=== PATIENT | female | born 1960 | race American Indian/Alaskan Native ===

== ENCOUNTER 2018-05-16 22:52 | Emergency (ER) | payer MEDICARE ==
[2018-05-16 23:13] VITALS: BP 120/70
--- NOTE | 2018-05-16 23:20 | Emergency Department Report ---
ED Head Trauma HPI - General Chief complaint: Wound/Laceration Stated complaint: HEAD LACERATION Time Seen by Provider: 05/16/18 23:19 Source: EMS, RN notes reviewed Mode of arrival: Stretcher Limitations: Altered Mental Status - History of Present Illness Initial comments: Patient is a 57-year-old female that presents to the emergency room for evaluati on after a self-inflicted head injury. Patient was noted to be hitting her head on the floor. Patient's sustained a wound to her occipital region of her head. Bleeding is controlled. History per caregiver at bedside. Caregiver states the patient is at baseline. Patient is a note times one. Patient is almost completely nonverbal. Psychiatric chart reviewed that accompany the patient. Patient is in [facility] for worsening psychosis and schizophrenia. Patient has been nonverbal at the facility but is violent at times and has uncontrolled behaviors at times. Patient is nonverbal and unable to assess other complaints and review of systems. Patient is at [facility] for a 1013. Complaint: head injury -: Sudden Mechanism of Injury: other Location: occipital Loss of Consciousness: no Previous Trauma to this Area: No Place: other Radiation: none Consistency: now resolved Provoking factors: emotional stress Other Injuries: laceration - Related Data Allergies/Adverse reactions: Allergies Allergy/AdvReac Type Severity Reaction Status Date / Time No Known Allergies Allergy Unverified 05/16/18 23:13 ED Review of Systems ROS: Stated complaint: HEAD LACERATION Other details as noted in HPI Comment: Unobtainable due to pts medical conditions ED Past Medical Hx - Past Medical History Previous Medical History?: Yes Hx Psychiatric Treatment: Yes (schizophrenia, bipolar) - Surgical History Past Surgical History?: No - Family History Family history: no significant - Social History Smoking Status: Unknown if ever smoked Substance Use Type: None ED Physical Exam - General Limitations: Altered Mental Status General appearance: alert, in no apparent distress - Head Head exam: Present: other (abrasion noted to occipital region.) - Eye Eye exam: Present: normal appearance, PERRL Pupils: Present: normal accommodation - ENT ENT exam: Present: mucous membranes moist - Neck Neck exam: Present: normal inspection - Respiratory Respiratory exam: Present: normal lung sounds bilaterally. Absent: respiratory distress - Cardiovascular Cardiovascular Exam: Present: regular rate, normal rhythm. Absent: systolic murmur, diastolic murmur, rubs, gallop - GI/Abdominal GI/Abdominal exam: Present: soft, normal bowel sounds. Absent: distended, tenderness, guarding, rebound - Rectal Rectal exam: Present: deferred - Extremities Exam Extremities exam: Present: normal inspection - Back Exam Back exam: Present: normal inspection - Neurological Exam Neurological exam: Present: alert, altered, reflexes normal. Absent: motor sensory deficit - Psychiatric Psychiatric exam: Present: flat affect - Skin Skin exam: Present: warm, dry, normal color, abrasion (to occipital region. No laceration noted). Absent: rash ED Course Vital Signs 05/16/18 23:09 Temperature 98.2 F Pulse Rate 89 Respiratory 18 Rate Blood Pressure 120/70 Blood Pressure 120/70 [Left] O2 Sat by Pulse 100 Oximetry - Reevaluation(s) Reevaluation #1: Discussed all results with caregiver. Patient is stable for discharge. Patient was discharged back to her psychiatric facility. 05/17/18 00:55 - Radiology Data Radiology results: report reviewed PROCEDURE: CT HEAD/BRAIN WO CON TECHNIQUE: Spiral CT imaging of the brain was obtained without IV contrast. HISTORY: head injury COMPARISONS: None FINDINGS: Brain: Brain density appears normal. No evidence of intracranial hemorrhage. No parenchymal hemorrhage, mass lesions or mass effect are seen. No abnormal extra-axial fluid collects or masses are seen. Ventricles: Ventricles are normal size and are midline. Bone Windows: No evidence of skull fracture. Paranasal sinuses: Visualized portions are clear. Mastoid air cells: Clear. IMPRESSION: Negative exam. No evidence of intracranial hemorrhage or skull fracture. - Medical Decision Making Patient is a 57-year-old female that presents to the emergency room for evaluation after self-inflicted head injury. Patient sustained a scalp abrasion. Patient's abrasion does not require any further emergency treatment but will require wound care at her psychiatric facility. Patient had a head CT done to rule out intracranial trauma. CT was negative. Patient and caregiver given discharge instructions. Patient will be discharged back to her psychiatric facility. Patient will call our wound care at her psychiatric facility. - Differential Diagnosis abrasion. Head injury. Critical care attestation.: If time is entered above; I have spent that time in minutes in the direct care of this critically ill patient, excluding procedure time. ED Disposition Clinical Impression: Head injury Qualifiers: Encounter type: initial encounter Qualified Code(s): S09.90XA - Unspecified injury of head, initial encounter Scalp abrasion Qualifiers: Encounter type: initial encounter Qualified Code(s): S00.01XA - Abrasion of scalp, initial encounter Disposition: DC/TX-65 PSY HOSP/PSY UNIT Is pt being admited?: No Does the pt Need Aspirin: No Condition: Stable Instructions: Minor Head Injury (ED), Abrasion (ED) Additional Instructions: Patient to follow-up with primary care in 2-3 days. Patient to return to psychiatric facility. Patient to rest. Patient take Tylenol or ibuprofen when necessary for pain. Patient to watch for signs of infection with her scalp abrasion. Patient to have wound care done Time of Disposition: 00:59
[2018-05-16] MEDS ORDERED: ATIVAN ONE (23:43)
[2018-05-16] MEDS ORDERED: ATIVAN IM ONE (23:44)
--- NOTE | 2018-05-17 00:33 | Cat Scan Report ---
PROCEDURE: CT HEAD/BRAIN WO CON TECHNIQUE: Spiral CT imaging of the brain was obtained without IV contrast. HISTORY: head injury COMPARISONS: None FINDINGS: Brain: Brain density appears normal. No evidence of intracranial hemorrhage. No parenchymal hemorr charo, mass lesions or mass effect are seen. No abnormal extra-axial fluid collects or masses are see n. Ventricles: Ventricles are normal size and are midline. Bone Windows: No evidence of skull fracture. Paranasal sinuses: Visualized portions are clear. Mastoid air cells: Clear. IMPRESSION: Negative exam. No evidence of intracranial hemorrhage or skull fracture. This document is electronically signed by Franklin Farr MD., May 17 2018 12:31:01 AM ET
== END 2018-05-17 02:30 ==
LOC: ED 22:52
DX: S00.01XA Abrasion of scalp, initial encounter (principal); F31.9 Bipolar disorder, unspecified; F20.9 Schizophrenia, unspecified; W22.01XA Walked into wall, initial encounter; Y93.89 Activity, other specified; Y92.89 Other specified places as the place of occurrence of the external cause; Y99.8 Other external cause status
CPT/HCPCS: 70450; J2060

== ENCOUNTER 2020-02-09 19:27 | Emergency (ER) | payer MEDICARE ==
--- NOTE | 2020-02-09 19:30 | Emergency Department Report ---
Blank Doc - Documentation Documentation: 59-year-old female that presents with generalized weakness and n/v. This initial assessment/diagnostic orders/clinical plan/treatment(s) is/are subject to change based on patient's health status, clinical progression and re- assessment by fellow clinical providers in the ED. Further treatment and workup at subsequent clinical providers discretion. Patient/guardians urged not to elope from the ED as their condition may be serious if not clinically assessed and managed. Initial orders include: 1- Patient sent to MAIN ED for further evaluation and treatment 2- labs 3- UA
[2020-02-09 19:59] LABS: Basophils % (Auto) 0.2 % (0.0-1.8); Hematocrit 31.2 % (30.3-42.9); Hemoglobin 10.2 gm/dl (10.1-14.3); Lymphocytes # (Auto) 0.6 K/mm3 (1.2-5.4); Lymphocytes % (Auto) 10.9 % (13.4-35.0); Mean Corpuscular HGB Conc 33 % (30-34); Mean Corpuscular Volume 87 fl (79-97); Monocytes # (Auto) 0.8 K/mm3 (0.0-0.8); Monocytes % (Auto) 15.3 % (0.0-7.3); Platelet Count 135 K/mm3 (140-440); Red Blood Count 3.59 M/mm3 (3.65-5.03)
[2020-02-09 20:13] LABS: Alanine Aminotransferase 51 units/L (7-56); Albumin 3.8 g/dL (3.9-5); BUN/Creatinine Ratio 14; Blood Urea Nitrogen 15 mg/dL (7-17); Hemolysis Index 20
[2020-02-09] MEDS ORDERED: ACETAMINOPHEN 325 MG TAB ONE (20:22)
--- NOTE | 2020-02-09 20:25 | XRay Report ---
CHEST 2 VIEWS INDICATION / CLINICAL INFORMATION: Fever, weakness. COMPARISON: None available. FINDINGS: SUPPORT DEVICES: None. HEART / MEDIASTINUM: No significant abnormality. LUNGS / PLEURA: Lungs are underexpanded without appreciable focal abnormality. No pneumothorax. ADDITIONAL FINDINGS: No significant additional findings. IMPRESSION: 1. Underexpanded exam without appreciable focal abnormality. Signer Name: Abdi Hendricks MD Signed: 02/09/2020 8:20 PM Workstation Name: [id number]
[2020-02-09] MEDS ORDERED: ACETAMINOPHEN 325 MG TAB PO ONE (20:34)
--- NOTE | 2020-02-10 14:00 | Emergency Department Report ---
ED N/V/D HPI - General Chief complaint: Weakness Stated complaint: N/V WEAKNESS Time Seen by Provider: 02/09/20 19:28 Source: EMS Mode of arrival: Wheelchair Limitations: Physical Limitation - History of Present Illness Initial comments: 59-year-old female, history of demnetia, schizophrenia, presents from [place] with nausea and vomiting. Patient states symptoms started 3 days ago. Apparently patient was seen at [facility] at the onset of her symptoms. Patient is poor historian. Intermittent fevers reported. Patient has no complaints at this time, only asking for juice. MD complaint: nausea, vomiting -: days(s) (3) Associated Abdominal Pain: Yes - Related Data Allergies Allergy/AdvReac Type Severity Reaction Status Date / Time No Known Allergies Allergy Unverified 05/16/18 23:13 ED Review of Systems ROS: Stated complaint: N/V WEAKNESS Other details as noted in HPI Comment: Unobtainable due to pts medical conditions ED Past Medical Hx - Past Medical History Hx Psychiatric Treatment: Yes (schizophrenia, bipolar) - Social History Smoking Status: Unknown if ever smoked Substance Use Type: None ED Physical Exam - General Limitations: Physical Limitation General appearance: alert, in no apparent distress - Head Head exam: Present: atraumatic, normocephalic - Eye Eye exam: Present: normal appearance, EOMI - ENT ENT exam: Present: mucous membranes moist - Neck Neck exam: Present: normal inspection - Respiratory Respiratory exam: Present: normal lung sounds bilaterally. Absent: respiratory distress - Cardiovascular Cardiovascular Exam: Present: regular rate, normal rhythm - GI/Abdominal GI/Abdominal exam: Present: soft. Absent: distended, tenderness - Extremities Exam Extremities exam: Present: normal inspection - Neurological Exam Neurological exam: Present: alert, other (confused, it was reported that pt has hx of dementia) - Psychiatric Psychiatric exam: Present: normal affect, normal mood - Skin Skin exam: Present: warm, dry, intact, normal color ED Course Vital Signs 02/09/20 02/09/20 02/10/20 19:37 21:44 14:53 Temperature 102.7 F H 101.6 F H Pulse Rate 90 88 Respiratory 18 18 12 Rate Blood Pressure 132/88 Blood Pressure 127/81 [Right] O2 Sat by Pulse 94 100 Oximetry 02/10/20 16:04 Temperature Pulse Rate Respiratory 18 Rate Blood Pressure Blood Pressure [Right] O2 Sat by Pulse Oximetry ED Medical Decision Making - Lab Data Result diagrams: 02/09/20 19:41 02/09/20 19:41 - Radiology Data Radiology results: report reviewed, image reviewed - Medical Decision Making 59-year-old female brought to ED secondary to fever, nausea and vomiting. Patient febrile stable, including normal O2 sats. Patient is 100% on room air. Patient given Tylenol for her fever. Chest x-ray is negative for any acute findings. She is in no respiratory distress. There was report of some vomiting, however patient has not had any episodes of emesis since being here in her room. Patient was given food tray and tolerated p.o. well. Urine also shows no evidence of infection. Possible viral etiology of her fever. Patient will be discharged at this time. Outpatient Covid testing recommended. - Differential Diagnosis COVID-19, UTI, pneumonia Critical care attestation.: If time is entered above; I have spent that time in minutes in the direct care of this critically ill patient, excluding procedure time. ED Disposition Clinical Impression: Febrile illness Disposition: DC-01 TO HOME OR SELFCARE Is pt being admited?: No Condition: Stable Instructions: Fever, Adult, COVID-19 Additional Instructions: Recommend outpatient COVID-19 testing. Referrals: PRIMARY CARE, [Primary Care Provider] - 3-5 Days Time of Disposition: 16:59
[2020-02-10 14:56] VITALS: BP 132/88
[2020-02-10] MEDS ORDERED: ACETAMINOPHEN 500 MG TAB PO ONE (15:02)
[2020-02-10 16:09] LABS: Bilirubin,Urine NEG (Negative); Blood,Urine MOD (Negative); Color,Urine Yellow (Yellow); Mucus,Urine 1+ /HPF; Urobilinogen,Urine < 2.0 mg/dL (<2.0)
== END 2020-02-11 09:10 | disposition home or self-care (01) ==
LOC: ED 19:27
DX: R50.9 Fever, unspecified (principal); R11.2 Nausea with vomiting, unspecified; R53.1 Weakness; R10.9 Unspecified abdominal pain; F20.9 Schizophrenia, unspecified; F31.9 Bipolar disorder, unspecified
CPT/HCPCS: 36415; 71046; 80053; 81001; 82140; 83690; 84484; 85025; 87040; 93005

== ENCOUNTER 2020-04-02 17:07 | Emergency (ER) | payer MEDICARE ==
[2020-04-02 17:31] VITALS: BP 163/87
--- NOTE | 2020-04-02 17:36 | Emergency Department Report ---
Chief Complaint: Extremity Injury, Lower Stated Complaint: FOOT PAIN Time Seen by Provider: 04/02/20 17:34 - HPI History of Present Illness: pt is a 59 yo female who presents to the ED with c/o bilateral toenail pain since she was 6 years old. she has not followed up with a PCP regarding this complaint. she denies any fall or injury. she denies any drainage, swelling, fever, n/v/d, chills. no allergies to meds vss on exam: the nails are darkened, with yellowing, and thick buildup underneath the toes, there is no erythema, no increased warmth, no drainage, no signs of any ulcerations, neurovascularly intact examination appears consistent with onychomycosis no signs any bacterial infection no signs of ulceration pt will be referred to PCP discussed strict return precautions medical screening exam performed and there is no threat to life or limb at this time - Exam Vital Signs: Vital Signs 04/02/20 17:27 Temperature 97.8 F Pulse Rate 68 Respiratory 18 Rate Blood Pressure 163/87 O2 Sat by Pulse 98 Oximetry MSE screening note: Focused history and physical exam performed. Due to findings the following was ordered: ED Disposition for MSE Clinical Impression: Onychomycosis Disposition: Z-07 MED SCREENING EXAM-LEFT Is pt being admited?: No Does the pt Need Aspirin: No Condition: Stable Instructions: Fungal Nail Infection Additional Instructions: may use an over the counter nail fungal treatment. follow up with a primary care doctor as you will likely need to be on a longer course of antifungal medication. return to the emergency room for any new or worsening symptoms. Referrals: [facility] [Provider Group] - 3-5 Days CHAPINCITO GREEN MD [Staff Physician] - 3-5 Days JOEY RG MD [Staff Physician] - 3-5 Days Time of Disposition: 17:34 Print Language: COMORAN
== END 2020-04-02 18:12 | disposition left against medical advice (07) ==
LOC: ED 17:07
DX: B35.1 Tinea unguium (principal); Z53.21 Procedure and treatment not carried out due to patient leaving prior to being seen by health care provider